=== PATIENT | female | born 1980 | race Caucasian/White ===

== ENCOUNTER → 2018-08-12 15:44 | Outpatient (CLI) | payer OTHER, SELFPAY | PROVIDERS: Visit Provider Physician Assistant | DX: J02.9 Acute pharyngitis, unspecified (principal) | CPT/HCPCS: 87070 ==

== ENCOUNTER 2020-05-25 10:58 | Observation (INO) | payer OTHER, SELFPAY ==
[2020-05-25] VITALS (31 sets, daily range): BP systolic 136–189; BP diastolic 65–113; PULSE 60–79; RESP 16–31; TEMP 36.3–36.9; O2SAT 96–100; BMI 33.5; BMI 33.0
--- NOTE | 2020-05-25 11:50 | ED_ITS ---
HPI - Chest Pain <NAKUL Mehta - Last Filed: 05/25/20 16:40> General Chief Complaint: Chest Pain Stated Complaint: nausea/chest heaviness/dizzy/hx high bp today Time Seen by Provider: 05/25/20 11:36 Source: patient Mode of arrival: Ambulatory Limitations: no limitations History of Present Illness HPI narrative: The patient is a 40-year-old female former smoker with history of myocardial infarction in 2018 with 2 stents, hypertension who presents with a chief complaint of chest heaviness this morning with associated lightheadedness. 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 That her heaviness was of 4 to 5/10, is currently a 0 to 1/10, nonradiating. She states that these symptoms are similar to her previous ME. She also notes that she is under significant psychosocial stress, she is undergoing a divorce, has a teenager with depression and anxiety, and is waiting to have a LEEP procedure to rule out cervical CA given her history of HPV. She presents with her friend. Patient states that she is on multiple medications to help control her hyperte nsion, she did not take any of her medications this morning. Thus she is due for her losartan 50 mg of metoprolol 25 mg. She does not take any blood thinners she states but is on a baby aspirin a day. She presents with a co-worker. She denies any palpitations, shortness of breath, current lightheadedness or dizziness. Related Data Home Medications Medication Instructions Recorded Confirmed aspirin 81 mg tablet,delayed 81 mg PO DAILY 08/12/18 05/25/20 release atorvastatin 40 mg tablet 40 mg PO DAILY 08/12/18 05/25/20 levonorgestrel 20 mcg/24 hours (6 20 mcg INTRAUTERINE DAILY each 08/12/18 05/25/20 yrs) 52 mg intrauterine device MDD 20 metoprolol tartrate 25 mg tablet 25 mg PO BID 08/12/18 05/25/20 sertraline [Zoloft] 50 mg PO DAILY 05/25/20 05/25/20 Allergies Allergy/AdvReac Type Severity Reaction Status Date / Time No Known Drug Allergies Allergy Verified 08/12/18 13:35 Review of Systems <NAKUL Mehta - Last Filed: 05/25/20 16:40> Review of Systems Narrative: GENERAL: Denies chills, fatigue, malaise, fever, sweats. HEENT: Denies sinus pain, ear pain, sore throat, difficulty swallowing, dizziness. RESPIRATORY: See HPI CARDIOVASCULAR: See HPI GASTROINTESTINAL: Denies nausea, vomiting, abdominal pain, diarrhea, constipation, melena. : Denies dysuria, frequency, incontinence, hematuria, urinary retention. MUSCULOSKELETAL: denies weakness, joint pain, or bony pain SKIN: Denies rash, skin lesions, or other NEUROLOGIC: Denies weakness, headache, numbness, change in speech, confusion, seizures, incoordination. PSYCHIATRIC: No concerning psychosocial issues. 12 point review of systems is negative except for those stated above Patient History <NAKUL Mehta - Last Filed: 05/25/20 16:40> Medical History (Updated 05/25/20 @ 23:39 by EVAN MontesNOE) Depression with anxiety HPV (human papilloma virus) anogenital infection Hypertension Myocardial infarction Surgical History (Updated 05/25/20 @ 23:39 by EVAN MontesNOE) H/O colposcopy with cervical biopsy Stented coronary artery Family History (Updated 05/25/20 @ 23:40 by NAKUL Montes) Mother Diabetes mellitus Hypertension Hyperlipidemia Brother [place]'s disease Father Hypothyroidism Alcoholism Social History household members: children Smoking Status: Former smoker Smoking Status: Former smoker Exam <NAKUL Mehta - Last Filed: 05/25/20 16:40> Narrative Exam Narrative: GENERAL: This is a well-nourished, well-developed patient, in no acute distress HEAD: Atraumatic. Normocephalic. No temporal or scalp tenderness. EYES: Pupils equal round and reactive. Extraocular motions intact. No scleral icterus. No injection or drainage. ENT: Nose without bleeding, purulent drainage or septal hematoma. Wearing a mask Airway patent. NECK: Trachea midline. No JVD or lymphadenopathy. Supple, nontender, no meningeal signs. CARDIOVASCULAR: Regular rate and rhythm RESPIRATORY: Clear to auscultation. Breath sounds equal bilaterally. No wheezes, rales, or rhonchi. No cough. No increased respiratory effort. No accessory muscle use. GASTROINTESTINAL: Abdomen soft, non-tender, nondistended. No hepato- splenomegaly, or palpable masses. No guarding. Active bowel sounds all 4 quadrants. EXTREMITIES: No clubbing, cyanosis, or edema. No joint tenderness, effusion, or edema noted. BACK: Nontender without deformity or crepitance. No flank tenderness. NEURO: AOx3. SKIN: No rash or erythema on visible skin Initial Vital Signs Initial Vital Signs: Vital Signs Temperature 97.8 F 05/25/20 11:12 Pulse Rate 76 05/25/20 11:12 Respiratory Rate 16 05/25/20 11:12 Blood Pressure 165/106 H 05/25/20 11:12 Pulse Oximetry 99 05/25/20 11:12 <Miko Zee MD - Last Filed: 05/26/20 12:16> Initial Vital Signs Initial Vital Signs: Vital Signs Temperature 97.8 F 05/25/20 11:12 Pulse Rate 76 05/25/20 11:12 Respiratory Rate 16 05/25/20 11:12 Blood Pressure 165/106 H 05/25/20 11:12 Pulse Oximetry 99 05/25/20 11:12 Scores <NAKUL Mehta - Last Filed: 05/25/20 16:40> GCS [place] coma scale eye opening: Spontaneous [place] coma scale verbal response: Orientated [place]ar coma scale motor response: Obey commands [place] coma scale total score: 15 Course <NAKUL Mehta - Last Filed: 05/25/20 16:40> Orders Ordered: Aspirin (Aspirin Ec 81 Mg Tablet) 81 mg PO DAILY [facility] Atorvastatin Calcium (Atorvastatin 20 Mg Tablet) 40 mg PO DAILY [facility] Enoxaparin Sodium (Enoxaparin 40 Mg/0.4 Ml Syringe) 40 mg SUBCUT DAILY [facility] Metoprolol Tartrate (Metoprolol Ir 25 Mg Tablet) 25 mg PO BID [facility] Sertraline HCl (Sertraline 50 Mg Tablet) 50 mg PO DAILY [facility] Sodium Chloride (Sodium Chloride 0.9% Flush) 10 ml IV BID [facility] Last Admin: 05/25/20 20:21 Dose: 10 ml Documented by: LIN Sodium Chloride (Sodium Chloride 0.9% Flush) 10 ml IV PRN PRN PRN Reason: Flush Discontinued Medications Aspirin (Aspirin 81 Mg Chew Tab) 324 mg PO NOW ONE Stop: 05/25/20 11:51 Last Admin: 05/25/20 12:11 Dose: 324 mg Documented by: HILDA Losartan Potassium (Losartan 50 Mg Tablet) 50 mg PO NOW ONE Stop: 05/25/20 11:52 Last Admin: 05/25/20 12:11 Dose: 50 mg Documented by: HILDA Metoprolol Tartrate (Metoprolol Ir 25 Mg Tablet) 25 mg PO NOW ONE Stop: 05/25/20 11:52 Last Admin: 05/25/20 12:11 Dose: 25 mg Documented by: HILDA Vital Signs Vital signs: Vital Signs - 8 hr 05/25/20 11:12 05/25/20 11:21 05/25/20 11:23 Temperature 97.8 F Pulse Rate 76 79 73 Respiratory Rate 16 22 Blood Pressure 165/106 H 173/103 H Pulse Oximetry 99 98 100 05/25/20 11:30 05/25/20 11:32 05/25/20 11:45 Temperature Pulse Rate 77 73 74 Respiratory Rate 21 23 19 Blood Pressure 166/101 H 170/111 H 174/111 H Pulse Oximetry 100 100 100 05/25/20 12:00 05/25/20 12:11 05/25/20 12:15 Temperature Pulse Rate 76 74 75 Respiratory Rate 31 H 24 Blood Pressure 172/97 H 172/97 H 179/108 H Pulse Oximetry 100 100 05/25/20 12:30 05/25/20 12:44 05/25/20 12:45 Temperature Pulse Rate 71 72 70 Respiratory Rate 26 H 27 H 19 Blood Pressure 189/113 H 169/93 H 164/87 H Pulse Oximetry 100 100 100 05/25/20 13:00 05/25/20 13:15 05/25/20 13:30 Temperature Pulse Rate 70 68 66 Respiratory Rate 19 17 18 Blood Pressure 175/93 H 163/80 H 164/87 H Pulse Oximetry 100 99 98 05/25/20 13:45 05/25/20 14:00 05/25/20 14:16 Temperature Pulse Rate 61 71 66 Respiratory Rate 19 17 25 H Blood Pressure 165/91 H 155/92 H 167/97 H Pulse Oximetry 98 100 98 05/25/20 14:30 05/25/20 14:31 05/25/20 14:45 Temperature Pulse Rate 62 60 66 Respiratory Rate 21 24 27 H Blood Pressure 154/76 H 146/71 H Pulse Oximetry 98 98 97 <Miko Zee MD - Last Filed: 05/26/20 12:16> Orders Ordered: Aspirin (Aspirin Ec 81 Mg Tablet) 81 mg PO DAILY [facility] Atorvastatin Calcium (Atorvastatin 20 Mg Tablet) 40 mg PO DAILY [facility] Enoxaparin Sodium (Enoxaparin 40 Mg/0.4 Ml Syringe) 40 mg SUBCUT DAILY [facility] Metoprolol Tartrate (Metoprolol Ir 25 Mg Tablet) 25 mg PO BID EBONIE Sertraline HCl (Sertraline 50 Mg Tablet) 50 mg PO DAILY [facility] Sodium Chloride (Sodium Chloride 0.9% Flush) 10 ml IV BID EBONIE Last Admin: 05/25/20 20:21 Dose: 10 ml Documented by: LIN Sodium Chloride (Sodium Chloride 0.9% Flush) 10 ml IV PRN PRN PRN Reason: Flush Discontinued Medications Aspirin (Aspirin 81 Mg Chew Tab) 324 mg PO NOW ONE Stop: 05/25/20 11:51 Last Admin: 05/25/20 12:11 Dose: 324 mg Documented by: HILDA Losartan Potassium (Losartan 50 Mg Tablet) 50 mg PO NOW ONE Stop: 05/25/20 11:52 Last Admin: 05/25/20 12:11 Dose: 50 mg Documented by: HILDA Metoprolol Tartrate (Metoprolol Ir 25 Mg Tablet) 25 mg PO NOW ONE Stop: 05/25/20 11:52 Last Admin: 05/25/20 12:11 Dose: 25 mg Documented by: HILDA Vital Signs Vital signs: Vital Signs - 8 hr 05/25/20 11:12 05/25/20 11:21 05/25/20 11:23 Temperature 97.8 F Pulse Rate 76 79 73 Respiratory Rate 16 22 Blood Pressure 165/106 H 173/103 H Pulse Oximetry 99 98 100 05/25/20 11:30 05/25/20 11:32 05/25/20 11:45 Temperature Pulse Rate 77 73 74 Respiratory Rate 21 23 19 Blood Pressure 166/101 H 170/111 H 174/111 H Pulse Oximetry 100 100 100 05/25/20 12:00 05/25/20 12:11 05/25/20 12:15 Temperature Pulse Rate 76 74 75 Respiratory Rate 31 H 24 Blood Pressure 172/97 H 172/97 H 179/108 H Pulse Oximetry 100 100 05/25/20 12:30 05/25/20 12:44 05/25/20 12:45 Temperature Pulse Rate 71 72 70 Respiratory Rate 26 H 27 H 19 Blood Pressure 189/113 H 169/93 H 164/87 H Pulse Oximetry 100 100 100 05/25/20 13:00 05/25/20 13:15 05/25/20 13:30 Temperature Pulse Rate 70 68 66 Respiratory Rate 19 17 18 Blood Pressure 175/93 H 163/80 H 164/87 H Pulse Oximetry 100 99 98 05/25/20 13:45 05/25/20 14:00 05/25/20 14:16 Temperature Pulse Rate 61 71 66 Respiratory Rate 19 17 25 H Blood Pressure 165/91 H 155/92 H 167/97 H Pulse Oximetry 98 100 98 05/25/20 14:30 05/25/20 14:31 05/25/20 14:45 Temperature Pulse Rate 62 60 66 Respiratory Rate 21 24 27 H Blood Pressure 154/76 H 146/71 H Pulse Oximetry 98 98 97 MDM - Chest Pain <EVAN Mehta-BC - Last Filed: 05/25/20 16:40> Lab Data Attestation: I reviewed the patient's lab results. Result diagrams: 05/26/20 05:10 05/26/20 05:10 Labs: Lab Results 05/25/20 05/25/20 05/25/20 Range/Units 11:37 11:37 11:37 WBC 6.8 (4.5-11.0) X10^3/uL RBC 4.40 (4.0-5.2) X10^6/uL Hgb 12.6 (12.0-16.0) g/dL Hct 37.4 (36-46) % MCV 85.1 (80-100) fL MCH 28.6 (26-34) PG MCHC 33.6 (30-36) % RDW 12.7 (11.6-14.8) % Plt Count 209 (150-400) X10^3/uL Neut % (Auto) 59.9 (50-75) % Lymph % (Auto) 29.9 (25-40) % [place] % (Auto) 7.6 (3-14) % Eos % (Auto) 1.8 L (2-4) % Baso % (Auto) 0.8 (0-2) % Neut # (Auto) 4100 (5363-6270) /uL Lymph # (Auto) 2000 (1465-1387) /uL [place] # (Auto) 500 (0-900) /uL Eos # (Auto) 100 (0-450) /uL Baso # (Auto) 100 (0-100) /uL PT 11.9 (10.1-12.7) SECONDS INR 1.0 (0.9-1.3) APTT 32 (26.4-36.2) SECONDS D-Dimer < 200 (<230) ng/mL Sodium 140 (137-145) mmol/L Potassium 4.2 (3.4-5.1) mmol/L Chloride 104 (98-107) mmol/L Carbon Dioxide 28 (22-32) mmol/L BUN 17 (7-17) mg/dL Creatinine 0.59 (0.52-1.04) mg/dL Estimated GFR > 60.0 (>60) mL/min BUN/Creatinine Ratio 28.8 H (6-22) Glucose 96 (70-100) mg/dL Calcium 9.2 (8.4-10.2) mg/dL Total Bilirubin 0.5 (0.2-1.3) mg/dL AST 31 (14-36) IU/L ALT 22 (<35) IU/L Alkaline Phosphatase 101 (38-126) U/L Total Creatine Kinase 51 (30-135) U/L CK-MB (CK-2) TNP CK-MB (CK-2) Rel Index TNP Troponin I < 0.012 (0.01-0.034) ng/mL NT-Pro-B Natriuret Pep 35 (<125) pg/mL Total Protein 7.6 (6.3-8.2) g/dL Albumin 4.9 (3.5-5.0) g/dL Globulin 2.7 (1.7-4.1) g/dL Albumin/Globulin Ratio 1.8 (1.0-2.8) Lipase 48 (23-300) U/L Procalcitonin < 0.03 (<0.5) ng/mL 05/25/20 Range/Units 14:15 WBC (4.5-11.0) X10^3/uL RBC (4.0-5.2) X10^6/uL Hgb (12.0-16.0) g/dL Hct (36-46) % MCV (80-100) fL MCH (26-34) PG MCHC (30-36) % RDW (11.6-14.8) % Plt Count (150-400) X10^3/uL Neut % (Auto) (50-75) % Lymph % (Auto) (25-40) % [place] % (Auto) (3-14) % Eos % (Auto) (2-4) % Baso % (Auto) (0-2) % Neut # (Auto) (2117-1516) /uL Lymph # (Auto) (4815-4762) /uL [place] # (Auto) (0-900) /uL Eos # (Auto) (0-450) /uL Baso # (Auto) (0-100) /uL PT (10.1-12.7) SECONDS INR (0.9-1.3) APTT (26.4-36.2) SECONDS D-Dimer (<230) ng/mL Sodium (137-145) mmol/L Potassium (3.4-5.1) mmol/L Chloride (98-107) mmol/L Carbon Dioxide (22-32) mmol/L BUN (7-17) mg/dL Creatinine (0.52-1.04) mg/dL Estimated GFR (>60) mL/min BUN/Creatinine Ratio (6-22) Glucose (70-100) mg/dL Calcium (8.4-10.2) mg/dL Total Bilirubin (0.2-1.3) mg/dL AST (14-36) IU/L ALT (<35) IU/L Alkaline Phosphatase (38-126) U/L Total Creatine Kinase 44 (30-135) U/L CK-MB (CK-2) TNP CK-MB (CK-2) Rel Index TNP Troponin I < 0.012 (0.01-0.034) ng/mL NT-Pro-B Natriuret Pep (<125) pg/mL Total Protein (6.3-8.2) g/dL Albumin (3.5-5.0) g/dL Globulin (1.7-4.1) g/dL Albumin/Globulin Ratio (1.0-2.8) Lipase (23-300) U/L Procalcitonin (<0.5) ng/mL Imaging Data Chest x-ray: Radiologist's Impression: [address] [place] [id number] ReportSigned Patient: Sara Arellano MMR#: [id number]: 1980Acct:[id number]/Sex: 40 / FDate of Service: 05/25/20Loc: EDAccession Number: [id number] Procedure: XR chest 1V Ordering Provider: Margot Cullen PROCEDURE: XR CHEST 1V INDICATIONS: chest pain TECHNIQUE: One view of the chest was acquired. COMPARISON: [facility], CR, XR CHEST 2 VIEWS, 06/12/2019, 13:38. [facility], CR, XR CHEST 1VW (PORTABLE), 11/20/2016, 22:33. FINDINGS: Surgical changes and devices: None. Lungs and pleura: Lungs are clear. No pleural effusions or pneumothorax. Mediastinum: Mediastinal contours appear normal. Heart size is normal. Bones and chest wall: No suspicious bony lesions. Overlying soft tissues appear unremarkable. IMPRESSION: No acute cardiopulmonary disease. Dictated by: Reny Mark M.D. on 05/25/2020 at 12:21 Approved by: Reny Mark M.D. on 05/25/2020 at 12:22 ECG Data Attestation: I personally reviewed and interpreted this ECG as follows: Interpretation: Sinus rhythm. Ventricular rate 70. P.r. interval 171. viewed by Dr Saadia RAHMAN Narrative Medical decision making narrative: The patient is a 40-year-old female who presents with a chief complaint of chest pain, she does have a significant cardiac history including an ME with 2 stents. She was initially hypertensive upon arrival, though I had not taken her normal blood pressure medication, so her blood pressure decreased after these were administered. EKG has no acute findings, initial troponin negative, chest x-ray negative, repeat troponin negative. I did speak with Dr. Jansen from Cardiology, who recommends that the patient be admitted for stress test observation. I spoke with Dr. Garcias who kindly agreed to accept the patient. Patient states understanding and has no questions or concerns. <Miko Zee MD - Last Filed: 05/26/20 12:16> Lab Data Labs: Lab Results 05/25/20 05/25/20 05/25/20 Range/Units 11:37 11:37 11:37 WBC 6.8 (4.5-11.0) X10^3/uL RBC 4.40 (4.0-5.2) X10^6/uL Hgb 12.6 (12.0-16.0) g/dL Hct 37.4 (36-46) % MCV 85.1 (80-100) fL MCH 28.6 (26-34) PG MCHC 33.6 (30-36) % RDW 12.7 (11.6-14.8) % Plt Count 209 (150-400) X10^3/uL Neut % (Auto) 59.9 (50-75) % Lymph % (Auto) 29.9 (25-40) % [place] % (Auto) 7.6 (3-14) % Eos % (Auto) 1.8 L (2-4) % Baso % (Auto) 0.8 (0-2) % Neut # (Auto) 4100 (7984-0794) /uL Lymph # (Auto) 2000 (5543-1694) /uL [place] # (Auto) 500 (0-900) /uL Eos # (Auto) 100 (0-450) /uL Baso # (Auto) 100 (0-100) /uL PT 11.9 (10.1-12.7) SECONDS INR 1.0 (0.9-1.3) APTT 32 (26.4-36.2) SECONDS D-Dimer < 200 (<230) ng/mL Sodium 140 (137-145) mmol/L Potassium 4.2 (3.4-5.1) mmol/L Chloride 104 (98-107) mmol/L Carbon Dioxide 28 (22-32) mmol/L BUN 17 (7-17) mg/dL Creatinine 0.59 (0.52-1.04) mg/dL Estimated GFR > 60.0 (>60) mL/min BUN/Creatinine Ratio 28.8 H (6-22) Glucose 96 (70-100) mg/dL Calcium 9.2 (8.4-10.2) mg/dL Total Bilirubin 0.5 (0.2-1.3) mg/dL AST 31 (14-36) IU/L ALT 22 (<35) IU/L Alkaline Phosphatase 101 (38-126) U/L Total Creatine Kinase 51 (30-135) U/L CK-MB (CK-2) TNP CK-MB (CK-2) Rel Index TNP Troponin I < 0.012 (0.01-0.034) ng/mL NT-Pro-B Natriuret Pep 35 (<125) pg/mL Total Protein 7.6 (6.3-8.2) g/dL Albumin 4.9 (3.5-5.0) g/dL Globulin 2.7 (1.7-4.1) g/dL Albumin/Globulin Ratio 1.8 (1.0-2.8) Lipase 48 (23-300) U/L Procalcitonin < 0.03 (<0.5) ng/mL 05/25/20 Range/Units 14:15 WBC (4.5-11.0) X10^3/uL RBC (4.0-5.2) X10^6/uL Hgb (12.0-16.0) g/dL Hct (36-46) % MCV (80-100) fL MCH (26-34) PG MCHC (30-36) % RDW (11.6-14.8) % Plt Count (150-400) X10^3/uL Neut % (Auto) (50-75) % Lymph % (Auto) (25-40) % [place] % (Auto) (3-14) % Eos % (Auto) (2-4) % Baso % (Auto) (0-2) % Neut # (Auto) (4257-9906) /uL Lymph # (Auto) (5175-1368) /uL [place] # (Auto) (0-900) /uL Eos # (Auto) (0-450) /uL Baso # (Auto) (0-100) /uL PT (10.1-12.7) SECONDS INR (0.9-1.3) APTT (26.4-36.2) SECONDS D-Dimer (<230) ng/mL Sodium (137-145) mmol/L Potassium (3.4-5.1) mmol/L Chloride (98-107) mmol/L Carbon Dioxide (22-32) mmol/L BUN (7-17) mg/dL Creatinine (0.52-1.04) mg/dL Estimated GFR (>60) mL/min BUN/Creatinine Ratio (6-22) Glucose (70-100) mg/dL Calcium (8.4-10.2) mg/dL Total Bilirubin (0.2-1.3) mg/dL AST (14-36) IU/L ALT (<35) IU/L Alkaline Phosphatase (38-126) U/L Total Creatine Kinase 44 (30-135) U/L CK-MB (CK-2) TNP CK-MB (CK-2) Rel Index TNP Troponin I < 0.012 (0.01-0.034) ng/mL NT-Pro-B Natriuret Pep (<125) pg/mL Total Protein (6.3-8.2) g/dL Albumin (3.5-5.0) g/dL Globulin (1.7-4.1) g/dL Albumin/Globulin Ratio (1.0-2.8) Lipase (23-300) U/L Procalcitonin (<0.5) ng/mL Discharge Plan Departure Patient Disposition: Admitted as Observation Clinical Impression: Chest pain Qualifiers: Chest pain type: unspecified Qualified Code(s): R07.9 - Chest pain, unspecified Admit Date/Time: 05/25/20 15:34 Admit Provider: Hayden Garcias <Miko Zee MD - Last Filed: 05/26/20 12:16> Cosign ED Attending Cosignature Attestation: I was immediately available in the [facility] tment for consultation. This documentation has been reviewed and I agree with assessment and plan. Supervised by Miko Zee MD
[2020-05-25 12:01] LABS: Prothrombin Time 11.9 SECONDS (10.1-12.7)
[2020-05-25 12:04] LABS: PTT Partial Thromboplastin Tim 32 SECONDS (26.4-36.2)
[2020-05-25 12:05] LABS: Add Manual Diff / Slide Review NO; Basophils Absolute Auto 100 /uL (0-100); Basophils Percent Auto 0.8 % (0-2); Eosinophils Absolute Auto 100 /uL (0-450); Eosinophils Percent Auto 1.8 % (2-4); Hematocrit 37.4 % (36-46); Hemoglobin 12.6 g/dL (12.0-16.0); Lymphocytes Absolute Auto 2000 /uL (1100-4500); Lymphocytes Percent Auto 29.9 % (25-40); Mean Corpuscular HGB Conc 33.6 % (30-36); Mean Corpuscular Hemoglobin 28.6 PG (26-34); Mean Corpuscular Volume 85.1 fL (80-100); Monocytes Absolute Auto 500 /uL (0-900); Monocytes Percent Auto 7.6 % (3-14); Neutrophils Absolute Auto 4100 /uL (1500-7000); Neutrophils Percent Auto 59.9 % (50-75); Platelet Count 209 X10^3/uL (150-400); Red Cell Distribution Width 12.7 % (11.6-14.8); White Blood Cell Count 6.8 X10^3/uL (4.5-11.0)
[2020-05-25] MEDS: METOPROLOL IR 25 MG TABLET PO (12:11)
[2020-05-25] MEDS: LOSARTAN 50 MG TABLET PO (12:11)
[2020-05-25] MEDS: ASPIRIN 81 MG CHEW TAB 324 MG PO (12:11)
[2020-05-25 12:12] LABS: D Dimer < 200 ng/mL (<230)
[2020-05-25 12:16] LABS: Alanine Aminotransferase 22 IU/L (<35); Albumin 4.9 g/dL (3.5-5.0); Albumin Globulin Ratio 1.8 (1.0-2.8); Alkaline Phosphatase 101 U/L (38-126); Aspartate Aminotransferase 31 IU/L (14-36); BUN Creatinine Ratio 28.8 (6-22); Bilirubin Total 0.5 mg/dL (0.2-1.3); Blood Urea Nitrogen 17 mg/dL (7-17); Calcium 9.2 mg/dL (8.4-10.2); Carbon Dioxide 28 mmol/L (22-32); Chloride 104 mmol/L (98-107); Creatine Kinase 51 U/L (30-135); Estimated Glomerular Filt Rate > 60.0 mL/min (>60); Globulin 2.7 g/dL (1.7-4.1); Glucose 96 mg/dL (70-100); HEMOLYSIS 17 (0-50); Lipase 48 U/L (23-300); Potassium 4.2 mmol/L (3.4-5.1); Sodium 140 mmol/L (137-145); Total Protein 7.6 g/dL (6.3-8.2)
[2020-05-25 12:28] LABS: NT-proBNP (BNP-Adult 18+) 35 pg/mL (<125); Troponin I < 0.012 ng/mL (0.01-0.034)
[2020-05-25 12:32] LABS: Procalcitonin < 0.03 ng/mL (<0.5)
[2020-05-25 14:43] LABS: Creatine Kinase 44 U/L (30-135)
[2020-05-25 14:56] LABS: Troponin I < 0.012 ng/mL (0.01-0.034)
--- NOTE | 2020-05-25 16:19 | DI.ECHO.S_ITS ---
[place] [facility]---------+ [facility] +---------+ : : [address] : : : : [id number] : : : : Phone: [phone] Echocardiogram Report + + :Name: CAPRI PRADO Study Date: 05/26/2020 Height: 66 in : :[facility] ReadingLocation: Weight: 205 lb : : Gender: Female BSA: 2.0 m2 : :: 1980 Age: 40 yrs BP: 138/90 mmHg: :Reason For Study: CHEST PAIN : :Ordering Physician: FAUSTINO, : :DAVID CLAY Performed By: Analisa Huff : :Referring: DAVID HARMON : + + Interpretation Summary The ejection fraction is estimated to be 60-65%. The left atrium is mildly dilated. The right ventricular systolic pressure is estimated to be at least 24 mmHg based on an estimated right atrial pressure of 8 mm Hg. There is mild tricuspid regurgitation. The ascending aorta is mildly enlarged. There is no pericardial effusion. Procedure: A two-dimensional transthoracic echocardiogram with color flow and Doppler was performed. The study quality was technically adequate. Comparison is made with the echocardiogram of 11/17/2016. The patient was in sinus bradycardia with heart rates between 53-64 bpm during the exam. Left Ventricle: The left ventricle is normal in size and wall thickness. The ejection fraction is estimated to be 60-65%. Left ventricular wall motion is normal. Right Ventricle: The right ventricle is normal in size, thickness and function. The right ventricular systolic function is normal. Atria: The left atrium is mildly dilated. Right atrial size is normal. There is no Doppler evidence for an interatrial shunt. Mitral Valve: The mitral valve is normal in structure and function. There is trace mitral regurgitation. Aortic Valve: The aortic valve is trileaflet. The aortic valve opens well. There is no aortic valve stenosis. There is trace aortic regurgitation. Tricuspid Valve: The tricuspid valve is normal in structure and function. The right ventricular systolic pressure is estimated to be at least 24 mmHg based on an estimated right atrial pressure of 8 mm Hg. There is mild tricuspid regurgitation. Pulmonic Valve: The pulmonic valve leaflets are thin and pliable; valve motion is normal. There is trace pulmonic regurgitation. Great Vessels: The aortic root is normal size. The ascending aorta is mildly enlarged. The IVC is of normal diameter and collapses less than 50% with a sniff. This suggests a right atrial pressure of 8 mm Hg. Pericardium/ Pleura There is no pericardial effusion. There is no pleural effusion. MMode/2D Measurements & Calculations LVIDd: 4.5 cm LVOT diam: 1.9 cm LVIDs: 3.1 cm Ao root diam: 3.4 cm FS: 31.6 % asc Aorta Diam: 3.7 cm EPSS: 0.93 cm Ao Arch Diam (Prox Trans): 3.0 cm IVSd: 1.1 cm LVPWd: 0.93 cm LV sarmiento. diameter/BSA (cm/m^2): 2.2 LV sys. diameter/BSA (cm/m^2): 1.5 LA A2 area: 24.8 cm2 RA long axis: 5.9 cm LA A4 area: 17.3 cm2 RA area: 16.0 cm2 LA length (vol): 4.8 cm RA vol: 37.1 ml LA vol: 75.6 ml RA : 18.3 ml/m2 LA vol index: 37.4 ml/m2 IVC diam: 1.6 cm TAPSE: 1.6 cm Doppler Measurements & Calculations Ao V2 max: 130.7 cm/sec LVOT Max Jagdish: 74.1 cm/sec Ao V2 mean: 88.8 cm/sec LV V1 max P.2 mmHg Ao max P.8 mmHg LV V1 VTI: 16.5 cm Ao mean P.6 mmHg CABRERA(I,D): 1.6 cm2 Ao V2 VTI: 29.1 cm CABRERA(V,D): 1.6 cm2 sev ratio: 0.57 CABRERA indexed to BSA (cm^2/m^2): 0.79 MV E max jagdish: 92.2 cm/sec TR max jagdish: 214.7 cm/sec MV A max jagdish: 72.2 cm/sec TR max P.4 mmHg MV E/A: 1.3 PA V2 max: 54.3 cm/sec Med Peak E' Jagdish: 5.4 cm/sec PA V2 mean: 39.4 cm/sec E/E' med: 17.1 PA mean P.68 mmHg Lat Peak E' Jagdish: 10.2 cm/sec PA pr(Accel): 34.5 mmHg E/E' lat: 9.0 E/e' average: 13.1 MV dec time: 0.19 sec SVLVOT): 46.3 ml Reading Physician:09:36 AM
[2020-05-25 17:22] LABS: COVID19 -Nasal RAPID Negative (Negative)
--- NOTE | 2020-05-25 19:43 | PM.HP.1 ---
History of Present Illness History of Present Illness Date Patient Seen: 05/25/20 Time Patient Seen: 18:27 Chief complaint: nausea/chest heaviness/dizzy/hx high bp today Narrative: The patient is a 40-year-old female Crystal Adan former smoker with history of myocardial infarction in 2018 with 2 stents, hypertension who presents to the ED with a chief complaint of chest heaviness this morning with associated lightheadedness. 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 That her heaviness was of 4 to 5/10, is currently a 0 to 1/10, nonradiating. She states that these symptoms are similar to her previous [place]. She also notes that she is under significant psychosocial stress, she is undergoing a divorce, has a teenager with depression and anxiety, and is waiting to have a LEEP procedure to rule out cervical CA given her history of HPV. Patient states that she is on multiple medications to help control her hypertension and anxiety & depression- she did not take any of her medications this morning. Thus she is due for her losartan 50 mg of metoprolol 25 mg. She does not take any blood thinners she states but is on a baby aspirin a day. She presents with a co-worker. She denies any palpitations, shortness of breath, current lightheadedness or dizziness. Upon admit to the floor patient's vitals temp 97.3?, BP 130/90, HR 68, R 18, 97% O2 saturation on room air. Labs D-dimer is negative troponin is negative chemistry and CBC are unremarkable. CXR: No cardiopulmonary process is noted, ECG:Sinus rhythm. Ventricular rate 70. P.r. interval 171. Patient admitted for chest pain scheduled for a stress test tomorrow Patient History Medical History (Updated 05/25/20 @ 23:39 by NAKUL Montes) Depression with anxiety HPV (human papilloma virus) anogenital infection Hypertension Myocardial infarction Surgical History (Updated 05/25/20 @ 23:39 by NAKUL Montes) H/O colposcopy with cervical biopsy Stented coronary artery Family & Social History Family History (Updated 05/25/20 @ 23:40 by NAKUL Montes) Mother Diabetes mellitus Hypertension Hyperlipidemia Brother Harrison's disease Father Hypothyroidism Alcoholism Social History: household members children Prior Living Arrangements House Safety & Behavioral: Feels Safe in Current Yes Environment Been Physically Hurt or No Threatened By a Person Suicidal Ideation Description None Suicide Plan Description No Plan Tobacco & Substance use: Smoking Status Former smoker alcohol intake frequency holiday/special occasion Substance Use Type does not use Meds Home Medications and Allergies Home Medications Medication Instructions Recorded Confirmed Type aspirin 81 mg tablet,delayed 81 mg PO DAILY 08/12/18 05/25/20 History release atorvastatin 40 mg tablet 40 mg PO DAILY 08/12/18 05/25/20 History levonorgestrel 20 mcg/24 hours (6 20 mcg INTRAUTERINE DAILY each 08/12/18 05/25/20 History yrs) 52 mg intrauterine device MDD 20 metoprolol tartrate 25 mg tablet 25 mg PO BID 08/12/18 05/25/20 History sertraline [Zoloft] 50 mg PO DAILY 05/25/20 05/25/20 History Allergies Allergy/AdvReac Type Severity Reaction Status Date / Time No Known Drug Allergies Allergy Verified 08/12/18 13:35 Review of Systems Review of Systems ROS: Yes All systems reviewed with the patient and are negative except as otherwise documented Exam Vital Signs (past 8 hours): - 05/25/20 11:45 05/25/20 12:00 05/25/20 12:11 Temperature Pulse Rate 74 76 74 Respiratory Rate 19 31 H Blood Pressure 174/111 H 172/97 H 172/97 H Pulse Oximetry 100 100 05/25/20 12:15 05/25/20 12:30 05/25/20 12:44 Temperature Pulse Rate 75 71 72 Respiratory Rate 24 26 H 27 H Blood Pressure 179/108 H 189/113 H 169/93 H Pulse Oximetry 100 100 100 05/25/20 12:45 05/25/20 13:00 05/25/20 13:15 Temperature Pulse Rate 70 70 68 Respiratory Rate 19 19 17 Blood Pressure 164/87 H 175/93 H 163/80 H Pulse Oximetry 100 100 99 05/25/20 13:30 05/25/20 13:45 05/25/20 14:00 Temperature Pulse Rate 66 61 71 Respiratory Rate 18 19 17 Blood Pressure 164/87 H 165/91 H 155/92 H Pulse Oximetry 98 98 100 05/25/20 14:16 05/25/20 14:30 05/25/20 14:31 Temperature Pulse Rate 66 62 60 Respiratory Rate 25 H 21 24 Blood Pressure 167/97 H 154/76 H Pulse Oximetry 98 98 98 05/25/20 14:45 05/25/20 15:00 05/25/20 15:15 Temperature Pulse Rate 66 61 62 Respiratory Rate 27 H 21 24 Blood Pressure 146/71 H 139/73 137/75 Pulse Oximetry 97 97 97 05/25/20 15:30 05/25/20 15:45 05/25/20 16:00 Temperature Pulse Rate 63 70 67 Respiratory Rate Blood Pressure 136/76 146/81 H Pulse Oximetry 98 97 96 05/25/20 16:15 05/25/20 16:30 05/25/20 16:46 Temperature Pulse Rate 65 Respiratory Rate Blood Pressure 139/78 146/86 H 139/65 Pulse Oximetry 96 05/25/20 16:52 05/25/20 18:19 Temperature 98.4 F 97.3 F L Pulse Rate 70 68 Respiratory Rate 24 18 Blood Pressure 139/65 138/90 Pulse Oximetry 98 97 Oxygen Delivery Method Room Air Narrative Exam Narrative: General: Patient is a well-developed, well-nourished Female in no distress at this time. HEENT: Normocephalic, atraumatic, extraocular muscles intact, oral pharynx is clear and mucous membranes are moist. Neck is supple and symmetric, trachea is midline, no adenopathy, no thyroid enlargement, nontender, no masses palpated. Negative for JVD Chest: Normal AP diameter and contour without kyphoscoliosis, no nasal flaring, retractions, or tachypneic labored Lungs: Auscultation of all lung elliott are clear without adventitious sounds, wheezes, rhonchi, or rales. Cardio: S1 & S2 with regular rate and rhythm without murmur, rubs, or gallops, no carotid bruit, no cardiac pulsations present. Abdomen: Soft nontender, negative for organomegaly, or masses. Bowel sounds are present in all 4 quadrants without guarding or rebound, no CVA tenderness. Musculoskeletal: Muscle strength and tone are equal within normal limits, no deformity, crepitus, effusions, cyanosis, clubbing or edema present. Full range of motion intact radial and pedal pulses are normal. Skin: Warm dry and intact without rashes, ulcerations or petechiae. Neuro: Alert and orientated x3, strength is +5/5 in all extremities, sensation to touch intact, no gross deficits noted of cranial nerves. Psych: Patient has a well-kept appearance, appropriate affect, mental status attitude thought context and judgment are appropriate for age. Objective Labs Result Diagrams: 05/25/20 11:37 05/25/20 11:37 Labs: Laboratory Results - last 24 hr 05/25/20 05/25/20 05/25/20 11:37 11:37 11:37 WBC 6.8 RBC 4.40 Hgb 12.6 Hct 37.4 MCV 85.1 MCH 28.6 MCHC 33.6 RDW 12.7 Plt Count 209 Neut % (Auto) 59.9 Lymph % (Auto) 29.9 Mccreary % (Auto) 7.6 Eos % (Auto) 1.8 L Baso % (Auto) 0.8 Neut # (Auto) 4100 Lymph # (Auto) 2000 Mccreary # (Auto) 500 Eos # (Auto) 100 Baso # (Auto) 100 PT 11.9 INR 1.0 APTT 32 D-Dimer < 200 Sodium 140 Potassium 4.2 Chloride 104 Carbon Dioxide 28 BUN 17 Creatinine 0.59 Estimated GFR > 60.0 BUN/Creatinine Ratio 28.8 H Glucose 96 Calcium 9.2 Total Bilirubin 0.5 AST 31 ALT 22 Alkaline Phosphatase 101 Total Creatine Kinase 51 CK-MB (CK-2) TNP CK-MB (CK-2) Rel Index TNP Troponin I < 0.012 NT-Pro-B Natriuret Pep 35 Total Protein 7.6 Albumin 4.9 Globulin 2.7 Albumin/Globulin Ratio 1.8 Lipase 48 Procalcitonin < 0.03 SARS-CoV-2 (PCR) 05/25/20 05/25/20 14:15 16:45 WBC RBC Hgb Hct MCV MCH MCHC RDW Plt Count Neut % (Auto) Lymph % (Auto) [place]re[place] % (Auto) Eos % (Auto) Baso % (Auto) Neut # (Auto) Lymph # (Auto) [place] # (Auto) Eos # (Auto) Baso # (Auto) PT INR APTT D-Dimer Sodium Potassium Chloride Carbon Dioxide BUN Creatinine Estimated GFR BUN/Creatinine Ratio Glucose Calcium Total Bilirubin AST ALT Alkaline Phosphatase Total Creatine Kinase 44 CK-MB (CK-2) TNP CK-MB (CK-2) Rel Index TNP Troponin I < 0.012 NT-Pro-B Natriuret Pep Total Protein Albumin Globulin Albumin/Globulin Ratio Lipase Procalcitonin SARS-CoV-2 (PCR) Negative Assessment & Plan Assessment & Plan narrative: 1. Acute chest pain-recurrent, acute on chronic, resolved on admission to ED -suspect anxiety/panic attack -Rule out myocardial ischemia, ACS, CAD, aortic dissection -Upon admit to the floor patient's vitals temp 97.3?, BP 130/90, HR 68, R 18, 97% O2 saturation on room air. Labs D-dimer is negative troponin is negative chemistry and CBC are unremarkable. CXR: No cardiopulmonary process is noted, ECG:Sinus rhythm. Ventricular rate 70. P.r. interval 171. Patient admitted for chest pain scheduled for a stress test & echo tomorrow -Continuous tele monitoring -Serial troponins 1 Q 6 hours x3, proBNP, TSH, CBC, CMP, UA, cortisol (sibling with Addisons dz). -sublingual nitro glycerin 0.4 mg, aspirin 325 mg -In the event of persistent unrelenting chest pain: Order CTA or V/Q scan or CT. Metoprolol 5 mg IV or Cardizem 5 mg to 10 mg IV Q 15 minutes, Beta-otis, nitrates, MS, heparin, Plavix PERC score:0, Kip Vasc score: 3 (3.2%), heart score:4 Monitor for hypertensive emergencies with acute end-organ damage, ventricular tachycardia, unstable SVT, hypertension, angina or [place], heart failure, renal function. Kip Vasc score: - Goals: reducing blood pressure over 24-48 hours, not more than 25-30% in the 1st 24 hours. O2 to keep O2 sats greater than 92% potassium > 4 and Mag > 2 2. Hypertension, essential, acute on chronic, present on admission -continue patient's metoprolol and lisinopril 3. Depression with anxiety, acute on chronic, present on admission -patient denies suicidal ideation anxiety /10, depression 5/10 -continue patient's Zoloft 4. Hyperlipidemia, mixed, acute on chronic, control unknown, not present on admission Continue patient's atorvastatin Code status: Full code COVID PCR: Negative Surrogate decision maker: Filomena Lott mother VTE/DVT prophylaxis: Lovenox 40 mg and SCDs Scores GCS [place] coma scale eye opening: Spontaneous [place] coma scale verbal response: Orientated Tushar coma scale motor response: Obey commands [place] coma scale total score: 15 CHADS-VASc Congestive heart failure: no Hypertension: yes Age 75 years or older: no Diabetes mellitus: no Stroke, TIA, or TE: no Vascular disease: yes Age 65 to 74 years: no Sex category (female): Female CHADS-VASc Score: 3 Wells' Criteria for PE Clinical signs and symptoms of DVT: No PE is #1 Dx or equally likely: No Heart rate > 100: No Immobilization at least 3 days or surg in previous 4 weeks: No History of PE or DVT: No Hemoptysis: No Malignancy w/Treatment within 6 months or palliative: No Wells' PE Score total: 0
[2020-05-25] MEDS: SODIUM CHLORIDE 0.9% FLUSH 10 ML IV (20:21)
[2020-05-25 21:26] LABS: Appearance Urine UA CLEAR; Bilirubin Urine UA NEGATIVE (NEGATIVE); Color Urine UA YELLOW; Glucose Urine UA NEGATIVE (Negative); Ketones Urine UA NEGATIVE (NEGATIVE); Leukocyte Esterase Urine UA NEGATIVE (NEGATIVE); Nitrite Urine UA NEGATIVE (Negative); Occult Blood Urine UA NEGATIVE (Negative); Protein Urine UA NEGATIVE (Negative); Specific Gravity Urine UA 1.025 (1.000-1.035); Urobilinogen Urine UA 0.2 E.U./dL (0.2)
[2020-05-25 21:29] LABS: Pregnancy Test Urine Negative (Negative)
[2020-05-25 21:36] LABS: Bacteria Urine Occasional (0-1); Culture Indicated Urine Cult Not Indicated; Mucus Urine 2+ (Negative); RBC Urine 0-1/HPF (0-5/HPF); Squamous Epithelial Cell Urine 1-5 /HPF (0-5/HPF); WBC Urine 0-1/HPF (0-5/HPF)
[2020-05-26] VITALS: BP 141/81; PULSE 72; RESP 16; TEMP 36.6; O2SAT 97
[2020-05-26 04:03] VITALS: BP 141/84; PULSE 64; RESP 16; TEMP 36.9; O2SAT 98
[2020-05-26 05:30] LABS: Add Manual Diff / Slide Review NO; Basophils Absolute Auto 100 /uL (0-100); Basophils Percent Auto 0.7 % (0-2); Eosinophils Absolute Auto 200 /uL (0-450); Eosinophils Percent Auto 2.3 % (2-4); Hematocrit 34.8 % (36-46); Hemoglobin 11.6 g/dL (12.0-16.0); Lymphocytes Absolute Auto 2600 /uL (1100-4500); Lymphocytes Percent Auto 35.7 % (25-40); Mean Corpuscular HGB Conc 33.4 % (30-36); Mean Corpuscular Hemoglobin 28.6 PG (26-34); Mean Corpuscular Volume 85.5 fL (80-100); Monocytes Absolute Auto 500 /uL (0-900); Monocytes Percent Auto 7.2 % (3-14); Neutrophils Absolute Auto 4000 /uL (1500-7000); Neutrophils Percent Auto 54.1 % (50-75); Platelet Count 184 X10^3/uL (150-400); Red Blood Cell Count 4.07 X10^6/uL (4.0-5.2); White Blood Cell Count 7.3 X10^3/uL (4.5-11.0)
[2020-05-26 05:34] LABS: Alanine Aminotransferase 20 IU/L (<35); Albumin 4.1 g/dL (3.5-5.0); Albumin Globulin Ratio 1.8 (1.0-2.8); Alkaline Phosphatase 91 U/L (38-126); Aspartate Aminotransferase 24 IU/L (14-36); Bilirubin Total 0.5 mg/dL (0.2-1.3); Blood Urea Nitrogen 18 mg/dL (7-17); Calcium 9.1 mg/dL (8.4-10.2); Carbon Dioxide 28 mmol/L (22-32); Chloride 104 mmol/L (98-107); Creatine Kinase 36 U/L (30-135); Estimated Glomerular Filt Rate > 60.0 mL/min (>60); Globulin 2.3 g/dL (1.7-4.1); Glucose 103 mg/dL (70-100); HEMOLYSIS < 15 (0-50); Potassium 3.8 mmol/L (3.4-5.1); Sodium 137 mmol/L (137-145); Total Protein 6.4 g/dL (6.3-8.2)
[2020-05-26 05:46] LABS: NT-proBNP (BNP-Adult 18+) 48 pg/mL (<125); Troponin I < 0.012 ng/mL (0.01-0.034)
[2020-05-26 06:06] LABS: TSH w/ Reflex to FT4 1.78 uIU/mL (0.47-4.68)
[2020-05-26 06:13] LABS: Cortisol AM (Before 10AM) 3.51 ug/dL (4.46-22.7)
[2020-05-26 07:45] VITALS: BP 152/110; PULSE 75; RESP 17; TEMP 36.7; O2SAT 97
--- NOTE | 2020-05-26 11:02 | CM.DANOTE ---
DCP: Case received, EMR reviewed and met with patient. Introduced self and role. Was able to obtain information from patient regarding her baseline activity status and living situation prior to her hospitalization. DCP assessment completed with information currently available. Patient is a 40year old female who admitted yesterday afternoon to the care of the hospitalist team. PCP: Dr. Oliva. Payer: confirmed: [employer]. Patient came to the hospital via private vehicle accompanied by her co-worker secondary to having dizziness, chest discomfort, as well as elevated BP. Patient does have history of [place], and had stents placed. Patient is also under stress, going though a divorce. She is here for a cardiac work up, including a stress test. Met with patient. She was sitting up in bed, she is alert and oriented. She is independent at baseline, works at [employer]. She resides in [place] with her sons, one is 17, the other 20. She indicated, she is under stress with the divorce, but also indicated that her 17 year old son has Chrons disease, it's also stressful, for she has to do some home schooling with him, and he does better in the classroom. Asked her if she had gone to any counseling, and she indicated that she does have a counselor. P: DCP to continue to follow and will be available for any resources needed. Patient should be able to go home when she is medically stable. Jennifer Mata, RN/Mechanical Maintenance Engineer
[2020-05-26 11:55] VITALS: BP 150/92; PULSE 64; RESP 18; TEMP 36.6; O2SAT 98
--- NOTE | 2020-05-26 12:20 | PC.NURSE ---
AM shift note. pt AO and receptive to care. Tearful and calm. HTN 152/110 but reporting asymptomatic. Tele: SR with occasional jimmy. NPO since 0600. Imaging wall steamer came up around 0900 to inject with contrast she then let me know that the pt has a 20 minute window to eat. I provided the pt with a turkey sandwich. pt left room and went down to stress test around 1015, back in room and tele re-applied. Imaging wall steamer then let us know they will be back around 1230 for the 2nd test, pt to remain NPO until then. pt denying pain. IND in room without concerns with ambulation.
--- NOTE | 2020-05-26 13:19 | PC.NURSE ---
Addendum entered by Sury Hidalgo R.N. 05/26/20 14:21: back in room at 1440. Original Note: pt off floor for stress test, starting at 12:45. for about an hour and a half.
[2020-05-26 15:58] VITALS: BP 108/67; PULSE 99; RESP 18; TEMP 37.1; O2SAT 97
[2020-05-26 16:18] LABS: Creatine Kinase 36 U/L (30-135)
[2020-05-26 16:31] LABS: Troponin I < 0.012 ng/mL (0.01-0.034)
--- NOTE | 2020-05-26 16:59 | P.DS_ITS ---
History of Present Illness History of Present Illness Date Patient Seen: 05/26/20 Time Patient Seen: 16:59 Chief complaint: nausea/chest heaviness/dizzy/hx high bp today Narrative: As per EVAN Montes- The patient is a 40-year-old female Sara Arellano former smoker with history of myocardial infarction in 2018 with 2 stents, hypertension who presents to the ED with a chief complaint of chest heaviness this morning with associated lighth eadedness. 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 That her heaviness was of 4 to 5/10, is currently a 0 to 1/10, nonradiating. She states that these symptoms are similar to her previous [place]. She also notes that she is under significant psychosocial stress, she is undergoing a divorce, has a teenager with depression and anxiety, and is waiting to have a LEEP procedure to rule out cervical CA given her history of HPV. Patient states that she is on multiple medications to help control her hypertension and anxiety & depression- she did not take any of her medications this morning. Thus she is due for her losartan 50 mg of metoprolol 25 mg. She does not take any blood thinners she states but is on a baby aspirin a day. She presents with a co-worker. She denies any palpitations, shortness of breath, current lightheadedness or dizziness. Upon admit to the floor patient's vitals temp 97.3?, BP 130/90, HR 68, R 18, 97% O2 saturation on room air. Labs D-dimer is negative troponin is negative chemistry and CBC are unremarkable. CXR: No cardiopulmonary process is noted, ECG:Sinus rhythm. Ventricular rate 70. P.r. interval 171. Patient admitted for chest pain scheduled for a stress test tomorrow Discharge Providers Provider Date of admission: 05/25/20 15:34 Discharge Date: 05/26/20 Primary care physician: Ange Oliva MD Consults: 05/25/20 11:43 Consult to [facility] - Access Clinician Stat Comment: Discharge provider: Hayden Garcias DO Summary Hospital Course Discharge Diagnosis: 1. Acute chest pain, resolved. 2. Hypertension, essential, acute on chronic, present on admission 3. Depression with anxiety, acute on chronic, present on admission 4. Hyperlipidemia, mixed, acute on chronic 5. CAD, chronic Hospital Course: Sara Arellano is a 40-year-old female with a past medical history of CAD with prior stenting about 4 years ago, hyperlipidemia and hypertension, as well as depression with anxiety who presented with chest pain yesterday. Given her prior history of CAD cardiology was consulted in the ER who recommended stress testing. Echocardiogram was performed which was unremarkable, and stress testing was deemed low risk for ischemia. Patient endorsed a great amount of anxiety and stress currently in her life, and most likely this was secondary to a panic attack. Her chest pain had not recurred ov er the course of her admission. No medication changes are recommended at this time. I do recommend that she follow-up with her primary care provider as previously scheduled. Status at Discharge Cognitive/behavioral status at discharge: oriented Functional status at discharge: independent ambulation Overall status at discharge: patient is back to baseline Exam Vital Signs (past 8 hours): - 05/26/20 11:55 05/26/20 15:58 Temperature 97.9 F 98.8 F Pulse Rate 64 99 H Respiratory Rate 18 18 Blood Pressure 150/92 H 108/67 Pulse Oximetry 98 97 Oxygen Delivery Method Room Air Oxygen Flow Rate 0 Narrative Exam Narrative: GENERAL APPEARANCE: Well developed, well nourished, in no acute distress. Did tear up when talking about the stress she is currently facing. CHEST: Normal AP diameter and normal contour without any kyphoscoliosis. CARDIOVASCULAR: There was a regular rate and rhythm. MUSCULOSKELETAL: Muscle strength and tone were normal. EXTREMITIES: No cyanosis, clubbing or edema. NEUROLOGIC: Alert and oriented. Normal gait. Objective Labs Result Diagrams: 05/26/20 05:10 05/26/20 05:10 Labs: Laboratory Results - last 24 hr 05/25/20 05/25/20 05/25/20 16:45 18:05 18:05 WBC RBC Hgb Hct MCV MCH MCHC RDW Plt Count Neut % (Auto) Lymph % (Auto) [place] % (Auto) Eos % (Auto) Baso % (Auto) Neut # (Auto) Lymph # (Auto) [place] # (Auto) Eos # (Auto) Baso # (Auto) Sodium Potassium Chloride Carbon Dioxide BUN Creatinine Estimated GFR BUN/Creatinine Ratio Glucose Calcium Total Bilirubin AST ALT Alkaline Phosphatase Total Creatine Kinase CK-MB (CK-2) CK-MB (CK-2) Rel Index Troponin I NT-Pro-B Natriuret Pep Total Protein Albumin Globulin Albumin/Globulin Ratio TSH Cortisol AM Sample Urine Color Yellow Urine Appearance Clear Urine pH 6.0 Ur Specific Hendricks 1.025 Urine Protein Negative Urine Glucose (UA) Negative Urine Ketones Negative Urine Occult Blood Negative Urine Nitrate Negative Urine Bilirubin Negative Urine Urobilinogen 0.2 Ur Leukocyte Esterase Negative Urine RBC 0-1/hpf Urine WBC 0-1/hpf Ur Squamous Epith Cells 1-5 /hpf Urine Bacteria Occasional (0-1) Urine Mucus 2+ H Ur Culture Indicated? Cult not indicated Urine Test Negative SARS-CoV-2 (PCR) Negative 05/26/20 05/26/20 05/26/20 05:10 05:10 05:10 WBC 7.3 RBC 4.07 Hgb 11.6 L Hct 34.8 L MCV 85.5 MCH 28.6 MCHC 33.4 RDW 13.0 Plt Count 184 Neut % (Auto) 54.1 Lymph % (Auto) 35.7 [place] % (Auto) 7.2 Eos % (Auto) 2.3 Baso % (Auto) 0.7 Neut # (Auto) 4000 Lymph # (Auto) 2600 [place] # (Auto) 500 Eos # (Auto) 200 Baso # (Auto) 100 Sodium Potassium Chloride Carbon Dioxide BUN Creatinine Estimated GFR BUN/Creatinine Ratio Glucose Calcium Total Bilirubin AST ALT Alkaline Phosphatase Total Creatine Kinase CK-MB (CK-2) CK-MB (CK-2) Rel Index Troponin I NT-Pro-B Natriuret Pep Total Protein Albumin Globulin Albumin/Globulin Ratio TSH 1.78 Cortisol AM Sample 3.51 L Urine Color Urine Appearance Urine pH Ur Specific Hendricks Urine Protein Urine Glucose (UA) Urine Ketones Urine Occult Blood Urine Nitrate Urine Bilirubin Urine Urobilinogen Ur Leukocyte Esterase Urine RBC Urine WBC Ur Squamous Epith Cells Urine Bacteria Urine Mucus Ur Culture Indicated? Urine Test SARS-CoV-2 (PCR) 05/26/20 05/26/20 05:10 14:55 WBC RBC Hgb Hct MCV MCH MCHC RDW Plt Count Neut % (Auto) Lymph % (Auto) [place] % (Auto) Eos % (Auto) Baso % (Auto) Neut # (Auto) Lymph # (Auto) [place] # (Auto) Eos # (Auto) Baso # (Auto) Sodium 137 Potassium 3.8 Chloride 104 Carbon Dioxide 28 BUN 18 H Creatinine 0.62 Estimated GFR > 60.0 BUN/Creatinine Ratio 29.0 H Glucose 103 H Calcium 9.1 Total Bilirubin 0.5 AST 24 ALT 20 Alkaline Phosphatase 91 Total Creatine Kinase 36 36 CK-MB (CK-2) TNP TNP CK-MB (CK-2) Rel Index TNP TNP Troponin I < 0.012 < 0.012 NT-Pro-B Natriuret Pep 48 Total Protein 6.4 Albumin 4.1 Globulin 2.3 Albumin/Globulin Ratio 1.8 TSH Cortisol AM Sample Urine Color Urine Appearance Urine pH Ur Specific Hendricks Urine Protein Urine Glucose (UA) Urine Ketones Urine Occult Blood Urine Nitrate Urine Bilirubin Urine Urobilinogen Ur Leukocyte Esterase Urine RBC Urine WBC Ur Squamous Epith Cells Urine Bacteria Urine Mucus Ur Culture Indicated? Urine Test SARS-CoV-2 (PCR) [facility] Medical History (Updated 05/25/20 @ 23:39 by Sherly Guerra [facility]) Depression with anxiety HPV (human papilloma virus) anogenital infection Hypertension Myocardial infarction Surgical History (Updated 05/25/20 @ 23:39 by Sherly Guerra [facility]) H/O colposcopy with cervical biopsy Stented coronary artery Family History (Updated 05/25/20 @ 23:40 by Sherly Guerra [facility]) Mother Diabetes mellitus Hypertension Hyperlipidemia Brother Turner's disease Father Hypothyroidism Alcoholism Social History household members: children Smoking Status: Former smoker Discharge Plan Discharge Plan Patient Disposition: Home Provider Discharge Comment: You were admitted to the hospital after an episode of chest pain. You had an unremarkable echocardiogram, and your stress test was negative. I recommend that you follow-up with your primary care provider as previously scheduled. No medication changes are necessary at this time. Discharge orders & Medications Prescriptions: Continued atorvastatin [Lipitor] 40 mg tablet 40 mg PO DAILY RF: 0 Mirena 20 mcg/24 hours (5 yrs) 52 mg intrauterine device 20 mcg Intrauterine DAILY MDD 20 RF: 0 aspirin [Adult Aspirin Regimen] 81 mg tablet,delayed release (DR/EC) 81 mg PO DAILY RF: 0 metoprolol tartrate 25 mg tablet 25 mg PO BID RF: 0 sertraline [Zoloft] 50 mg tablet 50 mg PO DAILY RF: 0 Follow up/Referrals: Ange Oliva MD [Primary Care Provider] - Diet/Activity/Treatments Diet: Diet as Tolerated Activity: As tolerated Discharge Data Primary Care Provider: Ange Oliva Attending Provider: Hayden Garcias
--- NOTE | 2020-05-26 20:41 | DI.NM.S_ITS ---
DATE OF SERVICE: 05/26/2020 PROCEDURE PERFORMED: Exercise treadmill stress and rest myocardial perfusion imaging with gating to assess ejection fraction and regional wall motion. ORDERING PROVIDER: Dr. Hayden Garcias. INDICATIONS: The patient is a 40-year-old female with a history of myocardial infarction, who is admitted with atypical chest discomfort. EXERCISE TREADMILL TESTING: The patient was able to exercise for a total of 8 minutes 31 seconds, suggesting average exercise capacity with an MOISÉS of +1 percent. She had a normal heart rate and blood pressure response to exercise, achieving a maximum heart rate of 169 BPM (95 percent of her predicted maximum). She had no chest discomfort or other anginal symptoms. Her resting ECG shows sinus rhythm with normal ST segments, and there are no significant ST-segment shifts or arrhythmias with exercise. At 7 minutes 40 seconds of exercise at a heart rate of 158 BPM, 25.3 millicuries of technetium-99m Myoview was injected and she was imaged 15 minutes later using a gated SPECT acquisition protocol. Earlier in the day while at rest, she had been injected with 13.0 millicuries of technetium-99m Myoview and imaged 30 minutes later, again using a gated SPECT acquisition protocol. FINDINGS: 1. Raw data: There is fair myocardial tracer uptake with moderate breast shadows noted that produce some slight attenuation. Lung/heart ratio is at the upper limits of normal at 0.41 with a normal TID ratio of 0.91. 2. Quantitated gated SPECT: Post-stress ejection fraction is estimated at 73 percent without any focal wall motion abnormality. Resting ejection fraction is estimated at 70 percent with a mildly increased end-diastolic volume of 126 mL. 3. Myocardial perfusion imaging: The post-stress supine images shows a fairly normal myocardial perfusion pattern without any obvious perfusion defects, supported by normal perfusion imaging in the prone position. The resting images show somewhat reduced tracer activity globally, but there are no areas of improvement. IMPRESSION: 1. Normal myocardial perfusion study. 2. No evidence for myocardial ischemia or previous myocardial infarction. 3. Normal left ventricular systolic function without any focal wall motion abnormalities. Left ventricular volumes are borderline increased. 4. Average exercise capacity without angina or electrocardiographic evidence of ischemia. Sara Arellano - PENELOPE/anna/tim doc#: [id number]/job#: [id number] dd: 05/26/2020 16:37:00 dt: 05/26/2020 20:19:00 DICTATING MD/COPIES TO: Brian Jama MD; Hayden Garcias M.D. COPIES MNE: MARJORIE;
== END 2020-05-26 17:41 | disposition home or self-care (01) ==
LOC: ED 11:20 → AC 15:34
PROVIDERS: Nurse Practitioner Family; Admitting Provider Internal Medicine; Emergency Provider Nurse Practitioner Family; PCP Family Medicine; Referring Provider Nurse Practitioner Family; Visit Provider Internal Medicine
DX: R07.9 Chest pain, unspecified (principal); I10 Essential (primary) hypertension; E78.5 Hyperlipidemia, unspecified; I25.10 Atherosclerotic heart disease of native coronary artery without angina pectoris; F41.8 Other specified anxiety disorders; I25.2 Old myocardial infarction; Z20.822 Contact with and (suspected) exposure to COVID-19
CPT/HCPCS: 36415; 71045; 78452; 80053; 81001; 81025; 82533; 82550; 83690; 83880; 84145; 84443; 84484; 85025; 85379; 85610; 85730; 87635; 93005; 93017; 93306; 99284; C9803; G0378; A9502